=== PATIENT | male | born 1940 | race Caucasian/White ===

== ENCOUNTER 2024-03-07 11:10 | Emergency (ER) | payer OTHER, MEDICARE, SELFPAY ==
[2024-03-07 11:18] VITALS: BP 154/74; PULSE 53; RESP 18; TEMP 36.6; O2SAT 99; BMI 25.8
--- NOTE | 2024-03-07 12:27 | PC.NURSE ---
patient and his are living on a boat. The patient has been kneeling in the engine compartment working on it for about a month. The patient has a history of gout and take a regular gout pill and a rescue pill. He tool both this morning. He tried apap and aleave yesterday as well as ice. He is a poor historian due to dementia and stated that she doesn't know if the ice helped. The patient didn't take any medication for pain today other than his gout meds.
--- NOTE | 2024-03-07 13:44 | ED.EXTPRO ---
HPI - Extremity Problem General Chief complaint: Extremity Problem,Nontraumatic Stated complaint: Rt knee injury Time Seen by Provider: 03/07/24 13:24 Source: patient Mode of arrival: Ambulatory History of Present Illness HPI Narrative: Patient is a 84-year-old male history of hypertension some dementia gout presenting today with right knee pain. He and his here working on his boat he has been on his knees quite a bit. Today he felt like his knee was a little bit unstable and thought it was swollen. He has been taking his gout medicine is not helping so he does not feel like it is gout. It has not red he denies any fever Related Data Allergies Allergy/AdvReac Type Severity Reaction Status Date / Time No Known Drug Allergies Allergy Verified 03/07/24 11:25 Patient History Social History Smoking Status: Former smoker Smoking Status: Former smoker alcohol intake frequency: 0-2 drinks per day Alcohol type: hard liquor Substance Use Type: does not use Exam Initial Vital Signs Initial Vital Signs: Vital Signs Temperature 97.9 F 03/07/24 11:18 Pulse Rate 53 L 03/07/24 11:18 Respiratory Rate 18 03/07/24 11:18 Blood Pressure 154/74 H 03/07/24 11:18 Pulse Oximetry 99 03/07/24 11:18 Oxygen Delivery Method Room Air 03/07/24 11:18 GENERAL: Alert very pleasant 84-year-old male CARDIOVASCULAR: peripheral pulses in tact, cap refill <2 sec RESPIRATORY: No respiratory distress, speaks in full sentences without difficulty EXTREMITIES: Normal range of motion, no clubbing or edema. Neurovascularly intact Right knee no significant erythema no edema full extension knee is stable NEUROLOGICAL: Cranial nerves II through XII grossly intact. Normal gait and speech. SKIN: Warm, dry, no petechiae, no rashes or lesions. Course Vital Signs Vital signs: Vital Signs - 8 hr 03/07/24 11:18 03/07/24 13:59 Temperature 97.9 F Pulse Rate 53 L 55 L Respiratory Rate 18 12 Blood Pressure 154/74 H 136/65 Pulse Oximetry 99 99 Oxygen Delivery Method Room Air Room Air MDM - Extremity (Nontraumatic) MDM Narrative Medical decision making narrative: Patient 84-year-old male presents today with knee pain. He has not had any fall or injury. He has been working on his knees quite a bit. No evidence of patellar bursitis or abscess. No evidence of a septic knee. He is afebrile there is no erythema. Discharge Plan Departure Patient Disposition: Home Clinical Impression: Right knee sprain Instructions: Knee Sprain Activity Restrictions/Additional Instructions: *You have been diagnosed with right knee sprain *What to do: At this time I recommend a knee brace while active and consider getting knee pads if you need to work on your knees. *Continue to take medications as directed Tylenol 650 mg every 4-6 hours if needed for [id number] pain *Follow up with your primary care provider in 2-3 days or call [phone] *Return to ER if you should have increasing redness pain fever or any new, worsening or concerning symptoms Stand Alone Forms: Patient Portal/API
[2024-03-07 13:59] VITALS: BP 136/65; PULSE 55; RESP 12; O2SAT 99
== END 2024-03-07 14:00 | disposition home or self-care (01) ==
PROVIDERS: Emergency Provider Emergency Medicine
DX: S83.91XA Sprain of unspecified site of right knee, initial encounter (principal)
CPT/HCPCS: 99281

== ENCOUNTER 2024-03-08 10:29 | Emergency (ER) | payer MEDICARE, OTHER, SELFPAY ==
[2024-03-08 11:06] VITALS: BP 146/65; PULSE 54; RESP 16; TEMP 36.1; O2SAT 99; BMI 26.6
--- NOTE | 2024-03-08 11:27 | DI.RAD.S_ITS ---
PROCEDURE: XR KNEE RT 3V INDICATIONS: pain and unable to bear weight. TECHNIQUE: 3 views of the knee were acquired. COMPARISON: None. FINDINGS: Bones: No fractures or dislocations. No suspicious bony lesions. Soft tissues: Moderate joint effusion. No suspicious soft tissue calcifications. IMPRESSION: No acute bony abnormality. Moderate joint effusion. Internal derangement not excluded. Dictated by: Mihir Smart M.D. on 03/08/2024 at 12:45 Approved by: Mihir Smart M.D. on 03/08/2024 at 12:45
--- NOTE | 2024-03-08 11:59 | ED.LOWEXIN ---
HPI - Extremity Injury (Lower) <Miguel Frost PA-C - Last Filed: 03/08/24 13:23> General Chief Complaint: Extremity Injury, Lower Stated Complaint: R knee can't put weight on it Time Seen by Provider: 03/08/24 11:31 Source: patient Mode of arrival: Wheelchair History of Present Illness HPI Narrative: 84-year-old male presents to the ED with worsening right knee pain. Patient has been experiencing right knee pain for 1 week, was seen in the ED yesterday, diagnosed with a sprain and discharged home. Patient states that this morning, the knee has worsened and he is unable to bear weight and walk on it. No new trauma. No numbness, tingling, weakness. No fevers, chills, chest pain, shortness of breath. Patient does have a history of gout, initially thought his knee pain might be a gout flare, took 2 days of colchicine with no relief. Patient also endorses that this knee pain is unlike his gout flares. Related Data Allergies Allergy/AdvReac Type Severity Reaction Status Date / Time No Known Drug Allergies Allergy Verified 03/08/24 11:09 Review of Systems <Miguel Frost PA-C - Last Filed: 03/08/24 13:23> Constitutional Constitutional: Denies chills, Denies fatigue, Denies fever(s), Denies frequent falls, Denies lethargy and Denies weakness Eyes Eyes: Denies change in vision, Denies eye discharge, Denies irritation and Denies loss of vision ENT Ears, Nose, Mouth, and Throat: Denies change in voice, Denies dizziness, Denies neck pain, Denies sore throat and Denies throat swelling Cardiovascular Cardiovascular: Denies chest pain, Denies irregular heart rhythm, Denies lightheadedness, Denies palpitations, Denies dyspnea, Denies dyspnea on exertion and Denies orthopnea Respiratory Respiratory: Denies cough, Denies dyspnea, Denies dyspnea on exertion and Denies wheezing Gastrointestinal Gastrointestinal: Denies abdominal pain, Denies change in bowel habits, Denies diarrhea, Denies nausea and Denies vomiting Musculoskeletal Musculoskeletal: Denies neck pain and Denies numbness Comments: R knee pain Integumentary/Breasts Skin/Breast: Denies pruritus, Denies erythema, Denies rash and Denies wounds Neurologic Neurologic: Denies behavioral changes, Denies confusion, Denies dizziness, Denies frequent falls, Denies loss of vision, Denies numbness and Denies weakness Psychiatric Psychiatric: Denies anxiety, Denies behavioral changes, Denies confusion, Denies depression, Denies homicidal ideation and Denies suicidal ideation Endocrine Endocrine: Denies fatigue, Denies flushing and Denies palpitations Hematologic/Lymphatic Hematologic/Lymphatic: Denies easy bruising Allergic/Immunologic Allergic/Immunologic: Denies urticaria, Denies throat swelling and Denies wheezing Patient History <Miguel Frost PA-C - Last Filed: 03/08/24 13:23> Social History Smoking Status: Former smoker Smoking Status: Former smoker alcohol intake frequency: 0-2 drinks per day Alcohol type: hard liquor Substance Use Type: does not use Exam <Miguel Frost PA-C - Last Filed: 03/08/24 13:23> Narrative Exam Narrative: Const General:?cooperative, healthy appearing and comfortable [facility] Head:?normal to inspection Ears:?hearing grossly normal bilaterally Nose:?external nose normal Face and sinus:?normal facial exam and sinuses nontender Mouth:?oral mucosae normal Throat:?posterior oropharynx normal Eyes General:?appearance normal, both eyes and all related structures Neck Neck:?normal visual inspection and no lymphadenopathy noted Resp Effort & Inspection:?normal respiratory effort Auscultation:?clear to auscultation bilaterally Cardio Rate:?regular rate Rhythm:?regular rhythm Musculoskeletal There is mild swelling of the medial aspect of the right knee compared to the left. No tenderness to palpation. Full passive range of movement. Patient unable to bear weight on the knee due to pain. Neurovascularly intact. Neuro General:?patient alert, patient awake and patient oriented x3 Initial Vital Signs Initial Vital Signs: Vital Signs Temperature 97.0 F L 03/08/24 11:06 Pulse Rate 54 L 03/08/24 11:06 Respiratory Rate 16 03/08/24 11:06 Blood Pressure 146/65 H 03/08/24 11:06 Pulse Oximetry 99 03/08/24 11:06 Oxygen Delivery Method Room Air 03/08/24 11:06 <Yvan Garcia DO - Last Filed: 03/08/24 14:44> Initial Vital Signs Initial Vital Signs: Vital Signs Temperature 97.0 F L 03/08/24 11:06 Pulse Rate 54 L 03/08/24 11:06 Respiratory Rate 16 03/08/24 11:06 Blood Pressure 146/65 H 03/08/24 11:06 Pulse Oximetry 99 03/08/24 11:06 Oxygen Delivery Method Room Air 03/08/24 11:06 Course <Miguel Frost PA-C - Last Filed: 03/08/24 13:23> Orders Ordered: ED Orders 03/08/24 11:27 XR knee RT 3V Stat Discontinued Medications Acetaminophen (Acetaminophen 325 Mg Tablet) 975 mg PO NOW ONE Stop: 03/08/24 12:09 Last Admin: 03/08/24 12:28 Dose: 975 mg Documented By: RB Vital Signs Vital signs: Vital Signs - 8 hr 03/08/24 11:06 03/08/24 13:15 Temperature 97.0 F L Pulse Rate 54 L 62 Respiratory Rate 16 18 Blood Pressure 146/65 H 142/72 H Pulse Oximetry 99 98 Oxygen Delivery Method Room Air Room Air <Yvan Garcia DO - Last Filed: 03/08/24 14:44> Orders Ordered: ED Orders 03/08/24 11:27 XR knee RT 3V Stat Discontinued Medications Acetaminophen (Acetaminophen 325 Mg Tablet) 975 mg PO NOW ONE Stop: 03/08/24 12:09 Last Admin: 03/08/24 12:28 Dose: 975 mg Documented By: RB Vital Signs Vital signs: Vital Signs - 8 hr 03/08/24 11:06 03/08/24 13:15 Temperature 97.0 F L Pulse Rate 54 L 62 Respiratory Rate 16 18 Blood Pressure 146/65 H 142/72 H Pulse Oximetry 99 98 Oxygen Delivery Method Room Air Room Air MDM - Extremity Injury (Lower) <Miguel Frost PA-C - Last Filed: 03/08/24 13:23> MDM Narrative Medical decision making narrative: 84-year-old male presents to the ED with worsening right knee pain. Concern for fracture/dislocation versus musculoskeletal sprain/strain versus other. Will obtain x-rays. Will give Tylenol. Will reassess. Pain improved with Tylenol. X-rays negative. Discussed rest, Tylenol, lidocaine patches, knee brace for soft tissue injury. Recommend follow-up with PCP as soon as possible for further evaluation. ED return precautions discussed with patient and patient's . They verbalized understanding. Medical records reviewed: Yes Discharge Plan Departure Patient Disposition: Home Clinical Impression: Right knee sprain Instructions: DI for Knee Pain Activity Restrictions/Additional Instructions: You were evaluated in the ED today for knee pain. Your x-ray did not show any fractures or dislocations. Your symptoms are most consistent with a musculoskeletal sprain/strain involving either the meniscus or ligaments. Please continue to take 1000 mg of Tylenol every 8 hours for pain. You may wear a knee brace for comfort. Please follow-up with your PCP as soon as possible for further evaluation. Return to the ED if you have worsening symptoms, numbness, tingling, weakness. Stand Alone Forms: Patient Portal/API ED Sign-out <Yvan Garcia, DO - Last Filed: 03/08/24 14:44> Cosign ED Attending Cosignature Attestation: Dr Garcia Co-Sign Statement: I was available for consultation during this patient's emergency department visit. This chart is signed by myself for administrative purposes only. I did not have direct contact with this patient during this visit. They were seen independently by the APC.
[2024-03-08] MEDS: ACETAMINOPHEN 325 MG TABLET 975 MG PO (12:28)
[2024-03-08 13:15] VITALS: BP 142/72; PULSE 62; RESP 18; O2SAT 98
== END 2024-03-08 13:18 | disposition home or self-care (01) ==
PROVIDERS: Emergency Provider Student in an Organized Health Care Education/Training Program
DX: S83.91XA Sprain of unspecified site of right knee, initial encounter (principal); X58.XXXA Exposure to other specified factors, initial encounter
CPT/HCPCS: 73562; 99283